=== PATIENT | female | born 1945 | race Caucasian/White ===

== ENCOUNTER 2020-03-31 18:59 | Observation (INO) ==
[2020-03-31 19:52] LABS: Basophils % 0.3 %; Eosinophils # 0.3 K/mcL (0.0-0.6); Eosinophils % 2.1 %; Hematocrit 40.8 % (35.3-44.9); Hemoglobin 13.7 g/dL (11.5-15.4); Immature Granulocytes % 0.3 % (0-4); Lymphocytes # 1.2 K/mcL (0.6-4.6); Lymphocytes % 9.7 %; Mean Corpuscular HGB Conc 33.6 g/dL (31.6-35.5); Mean Corpuscular Hemoglobin 30.2 pg (28.0-33.3); Mean Corpuscular Volume 89.9 fL (83.0-100.0); Monocytes # 0.9 K/mcL (0.0-1.3); Monocytes % 7.8 %; Neutrophils # 9.4 K/mcL (1.6-8.9); Platelet Count 299 K/mcL (140-400); Red Blood Count 4.54 M/mcL (3.82-4.97); Red Cell Distribution Width 13.1 % (11.5-14.5); Segmented Neutrophils % 79.8 %; White Blood Count 11.8 K/mcL (4.3-11.1)
[2020-03-31 19:58] LABS: Bilirubin,Urine Negative (Negative); Blood,Urine Negative (Negative); Clarity,Urine Clear (Clear); Color,Urine Light-Yellow (Yellow); Glucose,Urine (UA) Normal (Normal); Ketones,Urine Negative (Negative); Leukocyte Esterase,Urine Moderate (Negative); Nitrite,Urine Negative (Negative); Protein,Urine Negative (Neg-Trace); RBC,Urine 0-3 per hpf (0-3); Specific Gravity,Urine 1.015 (1.010-1.025); Squamous Epithelial Cell,Urine Few per hpf (None-Few); Urobilinogen,Urine Normal (Normal); WBC,Urine 15-30 per hpf (0-3)
[2020-03-31 20:17] LABS: Alanine Aminotransferase 15 Units/L (7-52); Albumin 4.7 g/dL (3.5-5.7); Alkaline Phosphatase 67 Units/L (34-104); Aspartate Amino Transferase 18 Units/L (13-39); BUN/Creatinine Ratio 19 (6-26); Bilirubin,Direct 0.2 mg/dL (0.0-0.2); Bilirubin,Indirect 0.5 mg/dL (0.0-1.0); Bilirubin,Total 0.7 mg/dL (0.3-1.0); Blood Urea Nitrogen 18 mg/dL (8-23); Calcium 9.7 mg/dL (8.6-10.3); Carbon Dioxide 24 mEq/L (23-29); Chloride 104 mEq/L (98-107); Globulin 2.4 g/dL (2.4-3.5); Glucose 112 mg/dL (70-105); Lipase 25 Units/L (11-82); Osmolality,Calculated 289 (280-300); Potassium 3.5 mEq/L (3.5-5.1); Sodium 138 mEq/L (136-145); Total Protein 7.1 g/dL (6.4-8.9); Troponin I < 0.03 ng/mL (< 0.04); eGFR For African Americans > 60 (> 60); eGFR For Non-African Americans 57 (> 60)
[2020-03-31] MEDS ORDERED: Isovue-370 500 ML BOTTLE IVP ONE (20:39)
[2020-03-31] MEDS ORDERED: Piperacillin/Tazobactam 4.5 GM in Water for inj. (sterile) 20 ML IVP ONE (22:27)
[2020-03-31] MEDS ORDERED: Piperacillin/Tazobactam 3.375 GM in 0.9 % Sodium Chloride Mini Bag 100 ML IVPB ONE (22:38)
[2020-03-31] MEDS ORDERED: 0.9 % Sodium Chloride 1,000 ML IVC SCH (23:15)
[2020-04-01] MEDS ORDERED: Naloxone 0.4 MG/ML INJ IVP PRN ×2 (00:42→12:21)
[2020-04-01] MEDS ORDERED: Acetaminophen 325 MG TABLET PO PRN ×2 (00:42→12:21)
[2020-04-01] MEDS ORDERED: Ondansetron 4 MG/2 ML VIAL IVP PRN ×2 (00:42→12:21)
[2020-04-01] MEDS ORDERED: Morphine Sulfate 2 MG/ML SYRINGE IVP PRN ×2 (01:54→12:21)
[2020-04-01 05:24] LABS: Basophils % 0.4 %; Eosinophils # 0.1 K/mcL (0.0-0.6); Eosinophils % 1.3 %; Hematocrit 39.4 % (35.3-44.9); Hemoglobin 12.8 g/dL (11.5-15.4); Immature Granulocytes % 0.2 % (0-4); Lymphocytes # 1.6 K/mcL (0.6-4.6); Lymphocytes % 17.1 %; Mean Corpuscular HGB Conc 32.5 g/dL (31.6-35.5); Mean Corpuscular Hemoglobin 29.1 pg (28.0-33.3); Mean Corpuscular Volume 89.5 fL (83.0-100.0); Mean Platelet Volume 10.4 fL (9.4-12.4); Monocytes # 0.7 K/mcL (0.0-1.3); Neutrophils # 6.7 K/mcL (1.6-8.9); Platelet Count 291 K/mcL (140-400); Red Cell Distribution Width 13.2 % (11.5-14.5); White Blood Count 9.2 K/mcL (4.3-11.1)
[2020-04-01 05:33] LABS: Prothrombin Time 11.1 Seconds (9.4-12.1)
[2020-04-01 05:51] LABS: BUN/Creatinine Ratio 15 (6-26); Blood Urea Nitrogen 14 mg/dL (8-23); Calcium 9.4 mg/dL (8.6-10.3); Carbon Dioxide 25 mEq/L (23-29); Chloride 107 mEq/L (98-107); Glucose 112 mg/dL (70-105); Osmolality,Calculated 291 (280-300); Phosphorous 3.2 mg/dL (2.7-4.5); Potassium 3.2 mEq/L (3.5-5.1); Sodium 140 mEq/L (136-145); eGFR For African Americans > 60 (> 60); eGFR For Non-African Americans > 60 (> 60)
[2020-04-01] MEDS ORDERED: Metoprolol XL (24 HR) Succ 25 MG TAB.ER.24H PO SCH (07:55)
[2020-04-01] MEDS ORDERED: Piperacillin/Tazobactam 3.375 GM in 0.9 % Sodium Chloride Mini Bag 100 ML IVPB SCH (08:00)
[2020-04-01] MEDS ORDERED: Pregabalin 75 MG CAPSULE PO ONE (08:39)
[2020-04-01] MEDS ORDERED: *HR* OxyCODONE Immed Rel 5 MG TABLET PO PRN (08:39)
[2020-04-01] MEDS ORDERED: Famotidine 20 MG/2 ML VIAL IVP ONE (08:39)
[2020-04-01] MEDS ORDERED: Acetaminophen IV 1,000 MG/100 ML INFUS..BTL IVPB ONE (08:39)
[2020-04-01] MEDS ORDERED: *HR* Labetalol 20 MG/4 ML SYRINGE IVP PRN (08:39)
[2020-04-01] MEDS ORDERED: *HR* HYDROmorphone 2 MG TABLET PO PRN (08:39)
[2020-04-01] MEDS ORDERED: *HR* HYDROmorphone (PF) 1 MG/ML SYRINGE IVP PRN (08:39)
[2020-04-01] MEDS ORDERED: *HR* Promethazine 25 MG/ML VIAL IVP PRN (08:39)
[2020-04-01] MEDS ORDERED: Ringers Solution, Lactated 1,000 ML IVC SCH (09:00)
[2020-04-01] MEDS ORDERED: Lidocaine -MPF 2% 2 ML VIAL ONE (09:12)
[2020-04-01] MEDS ORDERED: Dexamethasone 4 MG/ML VIAL ONE (09:12)
[2020-04-01] MEDS ORDERED: *HR* Rocuronium Bromide 50 MG/5 ML VIAL ONE (09:12)
[2020-04-01] MEDS ORDERED: Ondansetron 4 MG/2 ML VIAL ONE (09:12)
[2020-04-01] MEDS ORDERED: *HR* FentaNYL (PF) 100 MCG/2 ML VIAL ONE (09:13)
[2020-04-01] MEDS ORDERED: *HR* Propofol 200 MG/20 ML VIAL IVP ONE (09:13)
[2020-04-01] MEDS ORDERED: Famotidine 20 MG/2 ML VIAL ONE (09:47)
[2020-04-01] MEDS ORDERED: Acetaminophen IV 1,000 MG/100 ML INFUS..BTL ONE (09:47)
[2020-04-01] MEDS ORDERED: Lidocaine HCL 4 ML Topical Solution (Laryng-O-Jet Kit Sterile Pak) TP ONE (10:03)
[2020-04-01] MEDS ORDERED: Bupivacaine/EPI 1:200k 0.25%PF 30 ML VIAL ONE (10:21)
[2020-04-01] MEDS ORDERED: *HR* Atropine Sulfate 8 MG/20 ML VIAL IVP ONE (10:46)
[2020-04-01] MEDS ORDERED: *HR* OxyCODONE/APAP 5/325 TABLET PO PRN (12:21)
[2020-04-01] MEDS ORDERED: 0.9 % Sodium Chloride 1,000 ML IVC SCH (12:21)
[2020-04-01] MEDS: Piperacillin/Tazobactam 3.375 GM in 0.9 % Sodium Chloride Mini Bag 100 ML IVPB SCH (16:40)
[2020-04-01] MEDS: *HR* Enoxaparin 40 MG/0.4 ML SYRINGE SQ SCH (17:49)
[2020-04-01] MEDS ORDERED: cloNIDine HCL 0.1 MG TABLET PO SCH (21:00)
[2020-04-02] MEDS: Piperacillin/Tazobactam 3.375 GM in 0.9 % Sodium Chloride Mini Bag 100 ML IVPB SCH ×2 (01:04→08:44)
[2020-04-02] MEDS: *HR* Enoxaparin 40 MG/0.4 ML SYRINGE SQ SCH (06:24)
[2020-04-02 06:45] VITALS: BP 142/67
[2020-04-02] MEDS ORDERED: Metoprolol XL (24 HR) Succ 25 MG TAB.ER.24H PO SCH (09:00)
[2020-04-02] MEDS ORDERED: amLODIPine 5 MG TABLET PO SCH (09:00)
[2020-04-02] MEDS ORDERED: hydroCHLOROthiazide 25 MG TABLET PO SCH (09:00)
[2020-04-02] MEDS ORDERED: Pantoprazole 40 MG VIAL IVP SCH (09:00)
[2020-04-02] MEDS ORDERED: lisinopriL 20 MG TABLET PO SCH (09:00)
[2020-04-02 10:33] LABS: Hemoglobin 11.6 g/dL (11.5-15.4); Mean Corpuscular HGB Conc 32.2 g/dL (31.6-35.5); Mean Corpuscular Hemoglobin 29.3 pg (28.0-33.3); Mean Corpuscular Volume 90.9 fL (83.0-100.0); Mean Platelet Volume 10.5 fL (9.4-12.4); Platelet Count 266 K/mcL (140-400); Red Blood Count 3.96 M/mcL (3.82-4.97); Red Cell Distribution Width 13.5 % (11.5-14.5); White Blood Count 10.3 K/mcL (4.3-11.1)
[2020-04-02 10:45] LABS: BUN/Creatinine Ratio 18 (6-26); Blood Urea Nitrogen 19 mg/dL (8-23); Calcium 9.2 mg/dL (8.6-10.3); Carbon Dioxide 26 mEq/L (23-29); Chloride 108 mEq/L (98-107); Glucose 124 mg/dL (70-105); Osmolality,Calculated 292 (280-300); Potassium 3.8 mEq/L (3.5-5.1); Sodium 139 mEq/L (136-145); eGFR For African Americans > 60 (> 60); eGFR For Non-African Americans 50 (> 60)
== END 2020-04-02 11:25 | disposition home health service (06) ==
LOC: EMEROOARM 18:59 → 3NENU 18:59 → 3ANU 04-01 16:53
PROVIDERS: ADMIT Student in an Organized Health Care Education/Training Program; ATTEND Student in an Organized Health Care Education/Training Program